=== PATIENT | male | born 1945 | race Caucasian/White ===

== ENCOUNTER 2021-09-18 03:53 | Emergency (ER) | payer OTHER ==
[~2021-09-18] VITALS: Ht 185.4 cm; Wt 93.0 kg
--- NOTE | 2021-09-18 04:03 | NUR ---
PT BIBRA 89 FROM HOME C/O HAD SEIZURE AT 1, 2, 3AM. LASTING 15 SECONDS EACH. PLACED IN BED 10 ON [employer] AND P[employer]SE [employer]. ER MD AT BEDSIDE FOR EVAL. AWAITING ORDERS.
[2021-09-18] MEDS ORDERED: LEVETIRACETAM (500MG) 1,000 MG in IV NS 0.9% 100 ML IV SCH (04:30)
[2021-09-18] MEDS ORDERED: LEVETIRACETAM (500MG) 500 MG/5 ML VIAL IV ONE (04:31)
[2021-09-18 04:32] LABS: BASOPHILS % (AUTO) 0.4 % (0.0-2.0); EOSINOPHILS % (AUTO) 0.1 % (0.0-6.0); HEMATOCRIT 47 % (39-51); HEMOGLOBIN 15.8 g/dL (13.5-17.5); LYMPHOCYTES # (AUTO) 0.5 K/uL (0.8-4.8); LYMPHOCYTES % (AUTO) 4.6 % (20.0-44.0); MEAN CORPUSCULAR HGB CONC 33 g/dl (31.0-36.0); MEAN CORPUSCULAR VOLUME 94 fL (80-96); MONOCYTES # (AUTO) 0.4 K/uL (0.1-1.30); MONOCYTES % (AUTO) 3.6 % (2.0-12.0); NEUTROPHILS # (AUTO) 9.9 K/uL (1.8-8.9); NEUTROPHILS % (AUTO) 91.3 % (43.0-81.0); PLATELET COUNT (AUTO) 122 K/uL (150-450); RED BLOOD CELL COUNT(AUTO) 5.02 MIL/uL (4.5-6.0); WHITE BLOOD COUNT (AUTO) 10.8 K/uL (4.3-11.0)
--- NOTE | 2021-09-18 04:56 | NUR ---
BROUGHT TO CT AND BACK.
[2021-09-18 04:58] LABS: CALCIUM, SERUM 9.1 mg/dL (8.5-10.1); CARBON DIOXIDE 21 mmol/L (21-32); CHLORIDE 104 mmol/L (98-107); CREATININE 1.2 mg/dL (0.6-1.3); GLUCOSE 127 mg/dL (74-106); POTASSIUM 3.8 mmol/L (3.5-5.1); SODIUM SERUM 142 mmol/L (136-145); UREA NITROGEN, BLOOD 36 mg/dL (7-18)
[2021-09-18 05:04] LABS: ALANINE AMINOTRANSFERASE 47 U/L (12-78); ALBUMIN 3.9 g/dL (3.4-5.0); ALCOHOL, BLOOD < 3 mg/dL (0-0); ALKALINE PHOSPHATASE 77 U/L (46-116); ASPARTATE AMINOTRANSFERASE 29 U/L (15-37); BILIRUBIN,DIRECT 0.2 mg/dL (0.0-0.2); BILIRUBIN,TOTAL 0.7 mg/dL (0.2-1.0); TOTAL PROTEIN, SERUM 6.9 g/dL (6.4-8.2)
[2021-09-18 05:05] LABS: ACETAMINOPHEN 0 ug/ml (10-30)
[2021-09-18 05:19] LABS: BILIRUBIN,URINE NEGATIVE (NEGATIVE); COLOR,URINE YELLOW (YELLOW); LEUKOCYTE ESTERASE ,URINE NEGATIVE (NEGATIVE); NITRITE, URINE NEGATIVE (NEGATIVE); PH,URINE 5.5 (5.0-8.0); PROTEIN,URINE 30 mg/dl (NEGATIVE); UGLUCOSE NEGATIVE (NEGATIVE); UROBILINOGEN,URINE 0.2 EU/dL (0.2)
--- NOTE | 2021-09-18 05:53 | NUR ---
DIAMANTE FROM [place] ON PHONE UPDATED V/S, WILL CALL BACK
--- NOTE | 2021-09-18 05:54 | NUR ---
MYLA COOMBS ON PHONE CALL WITH DR JOMAR MATAMOROS
[2021-09-18] MEDS ORDERED: CIPROFLOXACIN IV RTU 400 MG in PREMIX 1 EA IV STA (05:58)
[2021-09-18 06:12] LABS: CREATINE KINASE, TOTAL 440 U/L (39-308)
[2021-09-18 06:19] LABS: WBC,URINE 0-2 /HPF (0-3)
[2021-09-18 06:20] LABS: BACTERIA,URINE None seen /HPF (None Seen); SQUAMOUS EPITHELIAL CELL,UR Few /HPF (None Seen); URIC ACID CRYSTALS,URINE Few /HPF (None Seen)
[2021-09-18] MEDS ORDERED: IV NS 0.9% 1,000 ML IV ONE (06:30)
--- NOTE | 2021-09-18 06:30 | NUR ---
[facility] CALLED FOR UPDATED V/S
--- NOTE | 2021-09-18 07:38 | NUR ---
ELIAS MATAMOROS EPRP REGARDING PT TRANSFER PT HAS BEEN ACCEPTED TO [facility]. GOING TO ER NUMBER FOR REPORT- [phone] CARE OF DR. RUPAL GARCÍA TRANSPORT PRN ETA [phone]
--- NOTE | 2021-09-18 07:54 | NUR ---
REPORT GIVEN TO STEPHENIE CHARGE NURSE OF [facility]
[2021-09-18 09:45] VITALS: BP 138/89
--- NOTE | 2021-09-18 10:08 | NUR ---
PICKED UP BY TRANSPORT IN STABLE CONDITION
== END 2021-09-18 10:10 | disposition short-term general hospital (02) ==
LOC: ER 04:00
DX: G40.909 Epilepsy, unspecified, not intractable, without status epilepticus (principal); N39.0 Urinary tract infection, site not specified; N28.9 Disorder of kidney and ureter, unspecified; R00.0 Tachycardia, unspecified; S01.512A Laceration without foreign body of oral cavity, initial encounter; X58.XXXA Exposure to other specified factors, initial encounter; Y92.039 Unspecified place in apartment as the place of occurrence of the external cause; Z20.822 Contact with and (suspected) exposure to COVID-19
CPT/HCPCS: 36415; 70450; 71045; 80048; 80076; 80143; 80307; 80320; 81001; 82550; 82553; 82962; 84484; 85025; 87077; 87081; 87086; 87186; 87426; 93005; 96365; 96367; 99285; A4216; C9803; J0744; J1953 ×2; J7030; G0480